=== PATIENT | female | born 1995 ===

== ENCOUNTER → 2023-06-02 | Day surgery (SDC) | payer OTHER ==
[~2023-06-02] MED LIST: CEPHALEXIN500 MG PO
== END | disposition home or self-care (01) ==
LOC: ADM 05-31 08:45 → CIR.AMB 08:45
PROVIDERS: ATTEND Otolaryngology Otology & Neurotology
DX: J32.4 Chronic pansinusitis (principal); S03.1XXA Dislocation of septal cartilage of nose, initial encounter; J34.2 Deviated nasal septum; J34.3 Hypertrophy of nasal turbinates; Z20.822 Contact with and (suspected) exposure to COVID-19